=== PATIENT | female | born 1980 | race Caucasian/White ===

== ENCOUNTER 2016-09-08 00:56 | Emergency (ER) | payer MEDICAID ==
[~2016-09-08] VITALS: Ht 152.4 cm; Wt 79.0 kg
[~2016-09-08 00:56] MED LIST: AZIT250T94 PO; D-ME473S18 PO
[2016-09-08 00:59] VITALS: Ht 152.4 cm; Wt 79.0 kg
[2016-09-08 02:46] LABS: URINE BLOOD (Dip) POC Trace-intact (NEGATIVE)
[2016-09-08] MEDS ORDERED: KETOROLAC 30 MG INJ IM STA (03:16)
[2016-09-08] MEDS ORDERED: FAMOTIDINE 20 MG TAB PO STA (03:16)
[2016-09-08] MEDS ORDERED: LIDOCAINE/MYLANTA 40 ML BTL PO STA (03:16)
[2016-09-08] MEDS ORDERED: BELLADONNA/PHENOBARBITAL TAB PO STA (03:16)
[2016-09-08] MEDS ORDERED: IBUP-1542 PO (03:19)
[2016-09-08] MEDS ORDERED: MAG355OR14 PO (03:19)
[2016-09-08] MEDS ORDERED: FAMO40TA52 PO (03:19)
[2016-09-08 03:49] LABS: ADD SCAN DIFF NO
[2016-09-08 03:52] LABS: BASOPHILS % 0.4 % (0.0-2.0); EOSINOPHILS # 0.1 10^3/ul (0.0-0.5); EOSINOPHILS % 1.9 % (0.0-7.0); HEMATOCRIT 40.9 % (37.0-47.0); HEMOGLOBIN 13.4 g/dl (12.0-16.0); LYMPHOCYTES # 0.6 10^3/ul (0.8-2.9); LYMPHOCYTES % 11.7 % (15.0-51.0); MEAN CORPUSCULAR HEMOGLOBIN 26.8 pg (29.0-33.0); MEAN CORPUSCULAR HGB CONC 32.8 g/dl (32.0-37.0); MEAN CORPUSCULAR VOLUME 81.8 fl (82.0-101.0); MONOCYTE # 0.3 10^3/ul (0.3-0.9); NEUTROPHIL # 4.2 10^3/ul (1.6-7.5); NEUTROPHILS % 80.8 % (39.0-77.0); PLATELET COUNT 190 10^3/UL (140-415); RED CELL DISTRIBUTION WIDTH 13.4 % (11.5-14.5); WHITE BLOOD COUNT 5.2 10^3/ul (4.8-10.8)
[2016-09-08 03:56] LABS: ADD UMIC NO; URINE BILIRUBIN (Dip) NEGATIVE (NEGATIVE); URINE BLOOD (Dip) NEGATIVE (NEGATIVE); URINE COLOR LT. YELLOW (YELLOW); URINE GLUCOSE (Dip) NEGATIVE (NEGATIVE); URINE KETONES (Dip) TRACE (NEGATIVE); URINE LEUKOCYTE ESTERASE (Dip) NEGATIVE (NEGATIVE); URINE NITRITE (Dip) NEGATIVE (NEGATIVE); URINE TOTAL PROTEIN (Dip) NEGATIVE (NEGATIVE); URINE UROBILINOGEN (Dip) 0.2 E.U./dL (0.1-1.0)
[2016-09-08 04:09] LABS: ALBUMIN 3.7 g/dl (3.3-4.9)
[2016-09-08 04:10] LABS: POTASSIUM 3.9 mmol/L (3.5-5.1)
[2016-09-08 04:12] LABS: ALBUMIN/GLOBULIN RATIO 1.08; BILIRUBIN,INDIRECT 0.4 mg/dl (0-1.1); BILIRUBIN,TOTAL 0.4 mg/dl (0.2-1.3); CALCIUM 8.8 mg/dl (8.4-10.2); CREATININE 0.67 mg/dl (0.44-1.00); TOTAL PROTEIN 7.1 g/dl (6.1-8.1)
--- NOTE | 2016-09-08 04:33 | ERD ---
ER Documentation Chief Complaint Date/Time DATE: 09/08/16 TIME: 04:30 Chief Complaint diffuse abd pain x 2 days HPI 35-year-old woman complaining of upper and lower abdominal pain 2 days. Pain is epigastric and burning. She denies dysuria, no fevers or chills, no vomiting or diarrhea, no chest pain or shortness of breath. Patient has a history of cholelithiasis and gastritis. ROS All systems reviewed and are negative except as per history of present illness. Medications Home Meds Active Scripts Famotidine* (Famotidine*) 40 Mg Tablet, 40 MG PO HS, #30 TAB Prov:MILIND MASTERSON MD 09/08/16 Ibuprofen* (Ibuprofen*) 600 Mg Tablet, 600 MG PO Q8 for PAIN AND/OR INFLAMMATION , #30 TAB Prov:MILIND MASTERSON MD 09/08/16 Mag Hydrox/Al Hydrox/Simeth (Maalox Advanced Suspension) 355 Ml Oral.susp, 2 TSP PO TID for PAIN, #24 Prov:MILIND MASTERSON MD 09/08/16 Dextromethorphan Hb-Promethazine Hcl (Promethazine DM Syrup) 473 Ml Syrup, 10 ML PO Q6H Y for COUGH, #4 OZ Prov:DEENA MARSH 05/11/16 Azithromycin* (Zithromax*) 250 Mg Tablet, 250 MG PO .ZPACK DIRECTED, #6 TAB TAKE 500 MG (2 TABS) THE FIRST DAY THEN 250 MG (1 TAB) DAYS 2-5 Prov:DEENA MARSH 05/11/16 Allergies Allergies: Coded Allergies: No Known Allergy (Unverified , 05/11/16) PMhx/Soc Cholelithiasis, gastritis, obesity History of Surgery: No Anesthesia Reaction: No Hx Neurological Disorder: No Hx Respiratory Disorders: No Hx Cardiac Disorders: No Hx Psychiatric Problems: No Hx Miscellaneous Medical Probl: Yes ("GALLBLADDER") Hx Alcohol Use: No Hx Substance Use: No Hx Tobacco Use: No Smoking Status: Never smoker FmHx Family History: No diabetes Physical Exam Vitals Vital Signs Date Time Temp Pulse Resp B/P Pulse Ox O2 Delivery O2 Flow Rate FiO2 09/08/16 03:00 85 18 107/65 97 09/08/16 00:59 98.7 88 20 115/58 98 Physical Exam GENERAL: Well-developed, well-nourished, well-hydrated, in no apparent distress , looks nontoxic in appearance HEENT: Moist mucous membranes, pink conjunctiva, no cervical spine tenderness or step-off deformities, no goiter, no jaundice or icterus, extraocular movements intact without pain. No submandibular induration, and no pharyngeal erythema NEURO: Alert and oriented 3, cranial nerves II through XII intact bilaterally, pupils equal round reactive to light, no focal deficits or facial asymmetry, sensation intact distally Strength 5/5 in upper and lower extremities bilaterally CARDIAC: Regular rate and rhythm, no murmurs rubs or gallops LUNGS: Clear bilaterally no wheezing crackles or stridor ABDOMEN: Soft nontender, no guarding, no rigidity, no rebound, no psoas sign no obturator sign. Normoactive bowel sounds SKIN: Warm and dry to touch, no abrasions, contusions, or hematomas, no lacerations, no ecchymosis, no target lesions, and without ulcers EXTREMITIES: No clubbing cyanosis or edema, calves are bilaterally symmetrical, no Homans sign, no popliteal cord sign. Distal pulses equal and bilateral PSYCH: Normal affect without agitation or irritability Result Diagram: 09/08/16 0334 Results 24 hrs Laboratory Tests Test 09/08/16 02:45 09/08/16 03:10 09/08/16 03:34 Bedside Urine pH (LAB) 6.0 Bedside Urine Protein (LAB) Negative Bedside Urine Glucose (UA) Negative Bedside Urine Ketones (LAB) Trace Bedside Urine Blood Trace-intact Bedside Urine Nitrite (LAB) Negative Bedside Urine Leukocyte Esterase (L Negative Urine Color LT. YELLOW Urine Clarity CLEAR Urine pH 6.0 Urine Specific [place] 1.025 Urine Ketones TRACE Urine Nitrite NEGATIVE Urine Bilirubin NEGATIVE Urine Urobilinogen 0.2 E.U./dL Urine Leukocyte Esterase NEGATIVE Urine Hemoglobin NEGATIVE Urine Glucose NEGATIVE% Urine Total Protein NEGATIVE White Blood Count 5.210^3/ul Red Blood Count 5.0010^6/ul Hemoglobin 13.4g/dl Hematocrit 40.9% Mean Corpuscular Volume 81.8fl Mean Corpuscular Hemoglobin 26.8pg Mean Corpuscular Hemoglobin Concent 32.8g/dl Red Cell Distribution Width 13.4% Platelet Count 96014^3/UL Mean Platelet Volume 10.0fl Neutrophils % 80.8% Lymphocytes % 11.7% Monocytes % 5.0% Eosinophils % 1.9% Basophils % 0.4% Nucleated Red Blood Cells % 0.0/100WBC Neutrophils # 4.210^3/ul Lymphocytes # 0.610^3/ul Monocytes # 0.310^3/ul Eosinophils # 0.110^3/ul Basophils # 0.010^3/ul Nucleated Red Blood Cells # 0.010^3/ul Current Medications Medications (Trade) Dose Ordered Sig/Farida Route PRN Reason Start Time Stop Time Status Last Admin Dose Admin Ketorolac Tromethamine (Toradol) 30 mg ONCE STAT IM 09/08/16 03:16 09/08/16 03:17 DC 09/08/16 03:28 Famotidine (Pepcid) 40 mg ONCE STAT PO 09/08/16 03:16 09/08/16 03:17 DC 09/08/16 03:27 Miscellaneous Medication (Gi Cocktail (2)) 40 ml ONCE STAT PO 09/08/16 03:16 09/08/16 03:17 DC 09/08/16 03:27 Belladonna/ Phenobarbital () 2 tab ONCE STAT PO 09/08/16 03:16 09/08/16 03:17 DC 09/08/16 03:27 Procedures/MDM I administered Toradol 30 mg intramuscular injection, GI cocktail 50 cc p.o., famotidine 40 mg p.o. with good effect. test was negative, urine analysis was negative for infection, CBC and electrolytes were normal, liver function tests were normal. Patient will be discharged for follow-up with her PMD she may require upper abdominal ultrasound as further evaluation, although this can be performed as an outpatient. She has no signs or symptoms of cholecystitis or cholangitis at this time. Differential diagnoses considered, included but not limited to acute coronary syndrome, pulmonary embolism, aortic dissection, abdominal aortic aneurysm, sepsis, stroke, meningitis, encephalitis, pneumonia, appendicitis, cholecystitis , bowel obstruction, pyelonephritis, nephrolithiasis, cystitis, as well as metabolic, hematologic, and electrolyte abnormalities. As well as abscess, cellulitis, fractures, and dislocations. Patient feels much better at this time, and vital signs are normal, symptoms have improved. I did give strict instructions to return to the ED if symptoms continue or worsen, patient will otherwise follow-up with primary care physician. Patient understood instructions and agreed to plan. Departure Diagnosis: Primary Impression: Abdominal pain Abdominal location: epigastric Qualified Code: R10.13 - Epigastric pain Additional Impression: Gastritis Gastritis type: unspecified gastritis Chronicity: acute Gastritis bleeding : without bleeding Qualified Code: K29.00 - Acute gastritis without hemorrhage, unspecified gastritis type Condition: Good Patient Instructions: Abdominal Pain, Gastritis (Adult) MILIND MASTERSON MD Sep 08, 2016 04:33
[2016-09-08 05:06] VITALS: BP 112/65; PULSE 71; RESP 17; TEMP 98.2
== END 2016-09-08 05:07 | disposition home or self-care (01) ==
LOC: E/R 00:56
DX: R10.13 Epigastric pain (principal); K29.00 Acute gastritis without bleeding; E66.9 Obesity, unspecified; Z68.34 Body mass index [BMI] 34.0-34.9, adult
CPT/HCPCS: 80053; 81003; 83690; 85025; J1885; Z7610; 36415; 96372

== ENCOUNTER 2017-03-30 06:52 | Emergency (ER) | payer MEDICAID ==
[~2017-03-30] VITALS: Ht 157.5 cm; Wt 76.5 kg
[~2017-03-30 06:52] MED LIST changes: +FAMO40TA52 PO; +IBUP-1542 PO; +MAG355OR14 PO
[2017-03-30 06:56] VITALS: Ht 157.5 cm; Wt 76.5 kg
[2017-03-30] MEDS ORDERED: HYDROCODONE/APAP (5/325) TAB PO ONE (08:00)
--- NOTE | 2017-03-30 08:49 | RADRPT ---
PROCEDURE: Bilateral knee x-ray CLINICAL INDICATION: Bilateral knee pain TECHNIQUE: AP, lateral and oblique views of the bilateral knees were obtained. COMPARISON: None FINDINGS: Right knee: There is normal mineralization. No acute fracture or dislocation is seen. There is no joint effusion. There are no significant degenerative changes. There is no significant soft tissue swelling. Left knee: There is normal mineralization. No acute fracture or dislocation is seen. There is no joint effusion. There are no significant degenerative changes. There is no significant soft tissue swelling. IMPRESSION: 1. Normal x-ray of the right knee. 2. Normal x-ray of the left knee. RPTAT: HH Physician Viraj Date Time Electronically viewed and signed by Physician Viraj on 03/30/2017 08:49 SHANTELL/
--- NOTE | 2017-03-30 08:51 | RADRPT ---
PROCEDURE: XR bilateral Ankle. CLINICAL INDICATION: Bilateral ankle pain. TECHNIQUE: AP, oblique and lateral views of the bilateral ankles were performed. COMPARISON: None. FINDINGS: Right: No fracture or dislocation. Mild pes planus. The bones are normal mineralization without cortical destruction. The talar dome is intact and ankle joint mortise well maintained. The remaining bones of the foot an d ankle are unremarkable. No soft tissue or osseous abnormality. Left:No fracture or dislocation. Mild pes planus. The bones are normal mineralization without cortical destruction. The talar dome is intact and ankle joint mortise well maintained. The remaining bones of the foot an d ankle are unremarkable. No soft tissue or osseous abnormality. IMPRESSION: 1. No fracture, dislocation, or soft tissue abnormality involving the right or left ankle. RPTAT: HH Physician Viraj Date Time Electronically viewed and signed by Physician Viraj on 03/30/2017 08:51 SHANTELL/
[2017-03-30] MEDS ORDERED: IBUP-1542 PO (09:00)
--- NOTE | 2017-03-30 15:36 | ERD ---
ER Documentation Chief Complaint Chief Complaint left leg x 1 mos HPI This is a 36-year-old female presents to the ER with bilateral knee pain and ankle pain for the last month. Patient states that pain is throbbing in quality and intermittent worse whenever she walks. Patient tried taking Tylenol for the pain however it did not work. She denies any weaknesses of her lower extremity, numbness, tingling, trauma. She denies any fevers or chills. ROS 12 point review of systems was done, all negative except per HPI. Medications Home Meds Active Scripts Ibuprofen* (Motrin*) 600 Mg Tab, 600 MG PO Q6, #30 TAB Prov:DEENA MARSH 03/30/17 Famotidine* (Famotidine*) 40 Mg Tablet, 40 MG PO HS, #30 TAB Prov:MILIND MASTERSON MD 09/08/16 Ibuprofen* (Ibuprofen*) 600 Mg Tablet, 600 MG PO Q8 for PAIN AND/OR INFLAMMATION , #30 TAB Prov:MILIND MASTERSON MD 09/08/16 Mag Hydrox/Al Hydrox/Simeth (Maalox Advanced Suspension) 355 Ml Oral.susp, 2 TSP PO TID for PAIN, #24 Prov:MILIND MASTERSON MD 09/08/16 Dextromethorphan Hb-Promethazine Hcl (Promethazine DM Syrup) 473 Ml Syrup, 10 ML PO Q6H Y for COUGH, #4 OZ Prov:DEENA MARSH 05/11/16 Azithromycin* (Zithromax*) 250 Mg Tablet, 250 MG PO .ZPACK DIRECTED, #6 TAB TAKE 500 MG (2 TABS) THE FIRST DAY THEN 250 MG (1 TAB) DAYS 2-5 Prov:DEENA MARSH 05/11/16 Allergies Allergies: Coded Allergies: No Known Allergy (Unverified , 05/11/16) PMhx/Soc History of Surgery: No Anesthesia Reaction: No Hx Neurological Disorder: No Hx Respiratory Disorders: No Hx Cardiac Disorders: No Hx Psychiatric Problems: No Hx Miscellaneous Medical Probl: Yes ("GALLBLADDER") Hx Alcohol Use: No Hx Substance Use: No Hx Tobacco Use: No Physical Exam Vitals Physical Exam GENERAL: The patient is well developed and appropriate for usual state of health , in no apparent distress. HEENT: Atraumatic. CHEST: Clear to auscultation bilaterally. There are no rales, wheezes or rhonchi. HEART: Regular rate and rhythm. No murmurs, clicks, rubs or gallops. EXTREMITIES: Equal pulses bilaterally. There is no peripheral clubbing, cyanosis or edema. No focal swelling or erythema. Full range of motion. Grossly neurovascularly intact. Has full and nonpainful range of motion of bilateral knees. There is no erythema, edema, ecchymosis, deformities. Negative anterior drawer negative posterior drawer negative Randy test bilaterally. Patient does not have any pain along the tibia fibula. Negative squeeze test. Patient has full and nonpainful range of motion of bilateral ankles. There is no pain to the lateral or medial malleolus. There is no pain to the plantar or midfoot. Patient does not have any pain to the distal fifth metatarsal. negative tarsal twist test. +2 pulses bilaterally. NEURO: Alert and oriented. SKIN: There is no apparent rash or petechia. The skin is warm and dry. Results 24 hrs Current Medications Medications (Trade) Dose Ordered Sig/Farida Route PRN Reason Start Time Stop Time Status Last Admin Dose Admin Acetaminophen/ Hydrocodone Bitart ([place] (5/325)) 1 tab ONCE ONCE PO 03/30/17 08:00 03/30/17 08:01 DC 03/30/17 07:45 [place] [address] Radiology Main Line: [phone] DIAGNOSTIC IMAGING REPORT Patient: ARCELIA NUNEZ : 1980 Age: 36 Sex: F [id number] DOS: 03/30/17 0000 Ordering MD: DEENA MARSH PA-C Location: [facility] Room/Bed: PROCEDURE: XR bilateral Ankle. CLINICAL INDICATION: Bilateral ankle pain. TECHNIQUE: AP, oblique and lateral views of the bilateral ankles were performed. COMPARISON: None. FINDINGS: Right: No fracture or dislocation. Mild pes planus. The bones are normal mineralization without cortical destruction. The talar dome is intact and ankle joint mortise well maintained. The remaining bones of the foot and ankle are unremarkable. No soft tissue or osseous abnormality. Left:No fracture or dislocation. Mild pes planus. The bones are normal mineralization without cortical destruction. The talar dome is intact and ankle joint mortise well maintained. The remaining bones of the foot and ankle are unremarkable. No soft tissue or osseous abnormality. IMPRESSION: 1. No fracture, dislocation, or soft tissue abnormality involving the right or left ankle. RPTAT: Gino Kaba, Physician Date Time Electronically viewed and signed by Physician Viraj on 03/30/2017 08:51 SHANTELL/ CC: DEENA MARSH [place] [address] Radiology Main Line: [phone] DIAGNOSTIC IMAGING REPORT Patient: ARCELIA NUNEZ : 1980 Age: 36 Sex: F MR #: [id number] DOS: 03/30/17 0000 Ordering MD: DEENA MARSH PA-C Location: [facility] Room/Bed: PROCEDURE: Bilateral knee x-ray CLINICAL INDICATION: Bilateral knee pain TECHNIQUE: AP, lateral and oblique views of the bilateral knees were obtained. COMPARISON: None FINDINGS: Right knee: There is normal mineralization. No acute fracture or dislocation is seen. There is no joint effusion. There are no significant degenerative changes. There is no significant soft tissue swelling. Left knee: There is normal mineralization. No acute fracture or dislocation is seen. There is no joint effusion. There are no significant degenerative changes. There is no significant soft tissue swelling. IMPRESSION: 1. Normal x-ray of the right knee. 2. Normal x-ray of the left knee. RPTAT: Gino Kaba, Physician Date Time Electronically viewed and signed by Physician Viraj on 03/30/2017 08:49 SHANTELL/ CC: DEENA MARSH Procedures/MDM This is a 36-year-old female presents to the ER with bilateral lower leg pain. Patient's pain has been going on for the last month and does not have any history of trauma. X-rays were negative for any fractures or dislocations. Suspicion for infectious etiology is low as patient is afebrile and well- appearing. Patient does have full range of motion of bilateral lower extremities and is neurovascularly intact. Patient will be sent home with Ibuprofen. She needs to follow up with her PCP within 1-2 days or return to ER sooner if symptoms worsen. My medical decision making was shared with the patient, she understands and agrees with plan. Departure Diagnosis: Primary Impression: Lower extremity pain, bilateral Condition: Stable Patient Instructions: Reducing Knee Pain and Swelling Additional Instructions: Llame al doctor MAANA y jeffrey naomi JESSICA PARA DENTRO DE 1-2 MAYBERRY.Dgale a la secretaria que nosotros le instruimos hacer esta jessica.Avise o llame si ritchie condicin se empeora antes de la jessica. Regresa aqui si peor o no mejor. DEENA MARSH Mar 30, 2017 15:36
== END 2017-03-30 09:13 | disposition home or self-care (01) ==
LOC: FTE 06:52
DX: M79.662 Pain in left lower leg (principal); M79.661 Pain in right lower leg
CPT/HCPCS: 73562; 73600; Z7610

== ENCOUNTER 2017-06-10 21:30 | Emergency (ER) | END 2017-06-11 03:10 | disposition left against medical advice (07) ==

== ENCOUNTER → 2018-08-02 | Emergency (ER) | payer MEDICAID ==
[~2018-08-02] VITALS: Ht 157.5 cm; Wt 78.2 kg
[~2018-08-02] MED LIST changes: +ACET325T33 PO; +AZIT250T PO; -AZIT250T94 PO; +FAMO40TA5 PO; -FAMO40TA52 PO
[2018-08-02 07:12] VITALS: BP 123/76; PULSE 74; RESP 18; Ht 157.5 cm; Wt 78.2 kg
--- NOTE | 2018-08-02 07:31 | ERD ---
ER Documentation Chief Complaint Chief Complaint bilat ear pain and throat pain x 5 days HPI 37-year-old female presents the emergency department complaining of upper respiratory nasal congestion, sore throat, bilateral ear pain. She states she has had the above symptoms for the last 3-5 days while both of her children have also been sick with similar type symptoms. She reports no fevers, cough, difficulty breathing. She reports no nausea, vomiting, diarrhea. ROS All systems reviewed and are negative except as per history of present illness. Medications Home Meds Active Scripts Acetaminophen* (Tylenol*) 325 Mg Tablet, 2 TAB PO Q6 PRN for PAIN AND OR ELEVATED TEMP, #20 TAB Prov:WILBERT WYATT 08/02/18 Ibuprofen* (Motrin*) 600 Mg Tab, 600 MG PO Q6, #30 TAB Prov:DEENA MARSH 03/30/17 Famotidine* (Famotidine*) 40 Mg Tablet, 40 MG PO HS, #30 TAB Prov:MILIND MASTERSON MD 09/08/16 Ibuprofen* (Ibuprofen*) 600 Mg Tablet, 600 MG PO Q8 for PAIN AND/OR INFLAMMATION, #30 TAB Prov:MILIND MASTERSON MD 09/08/16 Mag Hydrox/Al Hydrox/Simeth (Maalox Advanced Suspension) 355 Ml Oral.susp, 2 TSP PO TID for PAIN, #24 Prov:MILIND MASTERSON MD 09/08/16 Dextromethorphan Hb-Promethazine Hcl (Promethazine DM Syrup) 473 Ml Syrup, 10 ML PO Q6H PRN for COUGH, #4 OZ Prov:DEENA MARSH 05/11/16 Azithromycin* (Zithromax*) 250 Mg Tablet, 250 MG PO .ZPACK DIRECTED, #6 TAB TAKE 500 MG (2 TABS) THE FIRST DAY THEN 250 MG (1 TAB) DAYS 2-5 Prov:DEENA MARSH 05/11/16 Allergies Allergies: Coded Allergies: No Known Allergy (Unverified , 05/11/16) PMhx/Soc History of Surgery: No Anesthesia Reaction: No Hx Neurological Disorder: No Hx Respiratory Disorders: No Hx Cardiac Disorders: No Hx Psychiatric Problems: No Hx Miscellaneous Medical Probl: Yes (Cholecystectomy) Hx Alcohol Use: No Hx Substance Use: No Hx Tobacco Use: No Physical Exam Vitals Vital Signs Date Temp Pulse Resp B/P (MAP) Pulse Ox O2 O2 Flow FiO2 Time Delivery Rate 08/02/18 98.7 74 18 123/76 98 07:12 (92) Physical Exam GENERAL: The patient is well developed and appropriate for usual state of health in no apparent distress HEENT: Pupils equal, round, and reactive to light. EOMI. There is no scleral icterus. NECK: C-spine is soft and supple, there is no meningismus. There is no cervical lymphadenopathy. LUNGS: Clear to auscultation bilaterally. There are no rales, wheezes or rhonchi. HEART: Regular rate and rhythm, no murmurs, clicks, rubs or gallops. Procedures/MDM Patient was taken to a room, seen and examined Medical decision making: Patient presents to the emergency room with symptoms consistent with a viral syndrome. Patient has no evidence of sepsis, dehydration, pneumonia. Patient has no evidence of respiratory distress or high-risk concerns. Patient seems to be appropriate for outpatient supportive care. Departure Diagnosis: Primary Impression: URI (upper respiratory infection) Patient Instructions: Preventing Common Respiratory Infections Referrals: [facility] Usted se jamil hecho un examen mdico de control que le indica que no est en naomi condicin que requiera tratamiento urgente en el Departamento de Emergencia. Un estudio ms profundo y el tratamiento de ritchie condicin pueden esperar sin ningn riesgo hasta que usted sea atendida/o en el consultorio de ritchie mdico o naomi clnica. Es responsabilidad suya arreglar naomi toro para el seguimiento del carmela. MANEJO DE CONDICIONES NO URGENTES EN EL FUTURO 1) Si usted tiene un mdico de atencin primaria: Usted debera llamar a ritchie mdico de atencin primaria antes de venir al departamento de emergencia. Despus de las horas de consultorio, ritchie doctor o ritchie asociado/a est disponible por telfono. El mdico o enfermero de wilner en el servicio telefnico puede asesorarle por javon medio para atender el problema, o carmela contrario se puede programar naomi toro. 2) Si usted no tiene un mdico de atencin primaria: Llame al mdico o clnica de referencia que aparece abajo ravindra las horas de consultorio para hacer naomi toro para que le vean. CLINICAS: [facility] [id number] [facility] [phone] [address] [facility] [phone] [address] [facility] [phone] [place] [id number] [phone] [facility] [phone] WILBERT NINO Aug 02, 2018 07:31
== END | disposition home or self-care (01) ==
LOC: FTE 07:04
DX: J06.9 Acute upper respiratory infection, unspecified (principal)
CPT/HCPCS: 99282